=== PATIENT | female | born 1945 | race Caucasian/White ===

== ENCOUNTER 2019-10-18 18:02 | Inpatient (IN) | payer MEDICARE, OTHER ==
[~2019-10-18] VITALS: Ht 157.5 cm; Wt 64.9 kg
--- NOTE | 2019-10-18 18:02 | NUR ---
pt walked into er with daughters for medical clearance and psych eval due to behaviorial disturbances. pt with aggressive behaviors, refusing taking meds, hx of bipolar
--- NOTE | 2019-10-18 18:27 | NUR ---
josie trujillo called, will be here in one hour.
[2019-10-18 19:06] LABS: BASOPHILS % (AUTO) 0.4 % (0.0-2.0); EOSINOPHILS # (AUTO) 0.1 K/uL (0.0-0.7); EOSINOPHILS % (AUTO) 1.5 % (0.0-7.0); HEMATOCRIT 34.5 % (31.2-41.9); HEMOGLOBIN 11.8 g/dL (10.9-14.3); LYMPHOCYTES # (AUTO) 2.9 K/uL (20.0-40.0); LYMPHOCYTES % (AUTO) 43.4 % (20.5-51.5); MEAN CORPUSCULAR HEMOGLOBIN 32.8 uug (24.7-32.8); MEAN CORPUSCULAR HGB CONC 34 g/dL (32.3-35.6); MEAN CORPUSCULAR VOLUME 96.2 fL (75.5-95.3); MONOCYTES # (AUTO) 0.5 K/uL (2.0-10.0); MONOCYTES % (AUTO) 7.6 % (0.0-11.0); NEUTROPHILS # (AUTO) 3.1 K/uL (1.8-8.9); NEUTROPHILS % (AUTO) 47.1 % (38.5-71.5); PLATELET COUNT (AUTO) 169 K/uL (179-408); RED BLOOD CELL COUNT(AUTO) 3.59 MIL/uL (3.63-4.92); WHITE BLOOD COUNT (AUTO) 6.6 K/uL (3.8-11.8)
[2019-10-18 19:13] LABS: *BILIRUBIN,URIN NEGATIVE (NEGATIVE); *CLARITY,URINE SLIGHTLY CLOUDY (CLEAR); *COLOR,URINE YELLOW (YELLOW); *KETONES,URINE NEGATIVE (NEGATIVE); *UROBILINOGEN,URINE 0.2 E.U./dl (NORMAL); LEUKOCYTE ESTERASE ,URINE 1+ (NEGATIVE); NITRITE, URINE POSITIVE (NEGATIVE); PH,URINE 5.5 (5.0-8.0); UGLUCOSE NEGATIVE (NEGATIVE)
[2019-10-18 19:14] LABS: CARBON DIOXIDE 27 mmol/L (21-32); CHLORIDE 104 mmol/L (98-107); GLUCOSE 133 mg/dL (74-106); POTASSIUM 3.5 mmol/L (3.5-5.1); UREA NITROGEN, BLOOD 26 mg/dL (7-18)
[2019-10-18 19:18] LABS: *BLOOD, URINE TRACE (NEGATIVE)
[2019-10-18 19:21] LABS: BACTERIA,URINE MANY /HPF (NONE SEEN); SQUAMOUS EPITHELIAL CELL,UR MODERATE /HPF (NONE SEEN); URINE AMORPHOUS URATE MODERATE /HPF; WBC,URINE 80-100 /HPF (0-3)
[2019-10-18 19:22] LABS: *AMPHETAMINE, URINE NEGATIVE (NEGATIVE); *BARBITURATE, URINE NEGATIVE (NEGATIVE); *CANNABINOID, URINE NEGATIVE (NEGATIVE); *COCCAINE, URINE NEGATIVE (NEGATIVE); *OPIATE, URINE NEGATIVE (NEGATIVE); *PHENCYCLIDINE SCREEN,URINE NEGATIVE (NEGATIVE)
[2019-10-18 19:22] LABS: ETHANOL < 3 MG/DL (0-0)
[2019-10-18 19:27] LABS: THYROID STIMULATING HORMONE 11.251 mIU/mL (0.358-3.740)
[2019-10-18 19:29] LABS: ALANINE AMINOTRANSFERASE 16 U/L (14-59); ALKALINE PHOSPHATASE 101 U/L (50-136); ASPARTATE AMINOTRANSFERASE 18 U/L (15-37); BILIRUBIN,DIRECT 0.1 mg/dL (0.0-0.2); BILIRUBIN,TOTAL 0.6 mg/dL (0.2-1.0); CREATINE KINASE, TOTAL 45 U/L (26-192); TOTAL PROTEIN, SERUM 9.8 g/dL (6.4-8.2)
[2019-10-18 19:30] LABS: ACETAMINOPHEN < 2.0 ug/mL (10-30)
--- NOTE | 2019-10-18 20:00 | NUR ---
Medically cleared by Dr. Stephens
--- NOTE | 2019-10-18 20:02 | NUR ---
Geoff Montano at bedside to evaluate patient
[2019-10-18] MEDS ORDERED: NITROFURANTOIN/NITROFURAN MAC 100 MG CAPSULE PO ONE (20:15)
--- NOTE | 2019-10-18 20:47 | NUR ---
Pt. admitted to [facility] , under care of Dr. Laws / Dr. Lopez Belongs List completed
[2019-10-18] MEDS ORDERED: TEMAZEPAM 7.5 MG CAPSULE PO PRN (21:00)
[2019-10-18] MEDS ORDERED: ACETAMINOPHEN 325 MG TABLET PO PRN (21:00)
[2019-10-18] MEDS ORDERED: MAG HYDROX/AL HYDROX/SIMETH 30 ML LIQUID UDC PO PRN (21:00)
[2019-10-18] MEDS ORDERED: BLOOD SUGAR DIAGNOSTIC 1 EACH STRIP VI ONE (21:00)
[2019-10-18] MEDS ORDERED: MAGNESIUM HYDROXIDE 30 ML LIQUID UDC PO PRN (21:00)
[2019-10-18] MEDS ORDERED: LORAZEPAM 0.5 MG TABLET PO PRN (21:00)
[2019-10-18 21:30] VITALS: BP 138/67
--- NOTE | 2019-10-18 23:10 | NUR ---
GPS: Admitted to unit earlier a 74 yr.old female under the care and supervision of / who was medically cleared in our E.R. Pt.is on a 72 hour hold for GD. Pt.has become unmanageable to family caregivers,wandering aimlessly,elopement risk,refusing meds,and having increase auditory hallucinations,per hold. Pt.is alert to name and place. Slightly anxious but cooperative and listens to re-direction from staff. Denies wanting to hurt self/others.Denies AH/VH when asked. Personal belongings list/skin assessment done. Pt's rights handbook/advisement given to pt. Unit rules explained. Assisted prn. Safety emphasized. Fall precautions observed. Will continue to monitor.
[2019-10-19 07:42] VITALS: BP 128/61
[2019-10-19] MEDS: NITROFURANTOIN/NITROFURAN MAC 100 MG CAPSULE PO SCH ×2 (08:28→20:18)
--- NOTE | 2019-10-19 10:49 | NUR ---
Social Work/Family Contact: licensing worker spoke with patient's daughter, Kenia Johnson ([phone]) and collected collateral information regarding patient's current behaviors at home. Kenia stated that patient was stabilized from her previous psychiatric hospitalization in [place] in 2014, however, when they took her home she stopped taking her antipsychotic medications. Kenia stated that they hired a caregiver M-F 9am-5pm at home for the patient and her and her siblings rotate in taking care of her in the evenings and weekends. Per Kenia patient has become an elopement risk and unmanageable at home. Kenia stated that they are considering a senior living home for the patient upon this hospital discharge. Kenia stated that Bryan Zaidi ([phone]) patient's son, has DPOA. SW called Bryan but unable to reach or leave a voicemail. Will attempt to call again.
--- NOTE | 2019-10-19 10:49 | NUR ---
Social Work/Initial Discharge Note: Patient currently resides at home [address] [place] [address] with her daughter Alicia ([phone]). Patient's daughter Kenia ([phone]) and son Bryan Zaidi ([phone]) are very involved in the pt's care. SW will continue to work with patient, family, and MD to ensure a safe and proper discharge plan.
--- NOTE | 2019-10-19 11:15 | NUR ---
Social Work/Firearms Report (DOJ): Patent Searcher completed and submitted a DPJ firearms report for 5150 grave disability certification. A copy of report has been placed in patient chart.
[2019-10-19] MEDS: LORAZEPAM 1 MG TABLET PO PRN (11:46)
--- NOTE | 2019-10-19 11:49 | NUR ---
Patient up in maria del carmen chair. Confused, wants to leave. Keeps trying to remove gown. When assisting with cloths, patient tried to grab dave from nurse. Increase in agitation noted. Reorientation and redirection given to patient with little success. Ativan 1 mg given for anxiety. Continuing to monitor patient for behavior and safety.
[2019-10-19 15:45] VITALS: BP 126/62
[2019-10-19] MEDS: risperiDONE 0.25 MG TABLET PO SCH (20:18)
[2019-10-19] MEDS: RIVASTIGMINE TARTRATE 1.5 MG CAPSULE PO SCH (20:18)
[2019-10-19 20:32] VITALS: BP 113/69
[2019-10-19] MEDS ORDERED: RIVASTIGMINE TARTRATE 1.5 MG CAPSULE PO SCH (21:00)
[2019-10-20 07:30] VITALS: BP 114/63
[2019-10-20] MEDS: risperiDONE 0.25 MG TABLET PO SCH ×2 (08:12→20:02)
[2019-10-20] MEDS: RIVASTIGMINE TARTRATE 1.5 MG CAPSULE PO SCH ×2 (08:12→20:02)
[2019-10-20] MEDS: AMLODIPINE 10 MG TABLET PO SCH (08:12)
[2019-10-20] MEDS: METFORMIN HCL 500 MG TABLET PO SCH (08:12)
[2019-10-20] MEDS: NITROFURANTOIN/NITROFURAN MAC 100 MG CAPSULE PO SCH ×2 (08:12→20:01)
[2019-10-20] MEDS: MULTIVITAMINS,THERAPEUTIC TABLET PO SCH (08:12)
[2019-10-20] MEDS: LOSARTAN POTASSIUM 50 MG TABLET PO SCH (08:18)
--- NOTE | 2019-10-20 08:19 | NUR ---
Received patient awake, alert and oriented x3. Respirations are even and unlabored, no signs of respiratory distress noted. Patient is cooperative and redirectable with staff, but is guarded, withdrawn, and appears anxious. Patient is able to communicate needs to staff, speaks Telugu and Afghan. Patient is able to independently provide self care and ADL's, requires assistance with ambulation. Patient is medication adherent, no adverse reaction noted. Will continue to monitor.
[2019-10-20] MEDS ORDERED: Medication Not On Formulary EA (Multivitamin/Iron/Folic Acid (Centrum Adults Tablet) 1 E PO SCH (09:00)
--- NOTE | 2019-10-20 13:41 | NUR ---
Patient anxious, crying, and irritable. Patient states that she is 46 years old, currently , and that her family doesn't believe that she is . Patient provided with reality orientation, but refuses to follow education from staff. Patient is cooperative and redirectable with staff.
[2019-10-20 16:00] VITALS: BP 105/50
[2019-10-20 20:13] VITALS: BP 142/73
[2019-10-21 07:30] VITALS: BP 130/73
[2019-10-21] MEDS: risperiDONE 0.25 MG TABLET PO SCH (08:36)
[2019-10-21] MEDS: RIVASTIGMINE TARTRATE 1.5 MG CAPSULE PO SCH ×2 (08:36→20:35)
[2019-10-21] MEDS: MULTIVITAMINS,THERAPEUTIC TABLET PO SCH (08:37)
[2019-10-21] MEDS: LOSARTAN POTASSIUM 50 MG TABLET PO SCH (08:37)
[2019-10-21] MEDS: METFORMIN HCL 500 MG TABLET PO SCH (08:37)
[2019-10-21] MEDS: NITROFURANTOIN/NITROFURAN MAC 100 MG CAPSULE PO SCH ×2 (08:37→20:35)
[2019-10-21] MEDS: AMLODIPINE 10 MG TABLET PO SCH (08:38)
--- NOTE | 2019-10-21 11:18 | NUR ---
Received patient in bed, mood depressed. Alert to name, but with delusions of "My boyfriend is in the next room. He is so nice but I cant remember his name". Also expressing " I have to leave, I am not suppose to be here". Patient depressed and weeping. Reoriented patient to situation and reality . Continuing to monitor for distress and safety. Patient is compliant with medications at this time.
[2019-10-21] MEDS: LORAZEPAM 1 MG TABLET PO PRN (16:26)
[2019-10-21 18:00] VITALS: BP 104/58
--- NOTE | 2019-10-21 18:09 | NUR ---
Patient up during the day many times. Mood was depressed and anxious.Assisted patient with ambulation and bathroom privileges. Medicated for anxiety. Family visiting patient at this time. No acute stress noted.
--- NOTE | 2019-10-21 20:00 | NUR ---
RECEIVED PATIENT IN THE HER ROOM IN BED. SHE IS NOTED A/O X1. SHE CONTINUE ISOLATIVE, REMAINS IN HER ROOM MOST OF THE TIME. FLAT AFFEC, DEPRESSED MOOD. SHE CONTINUE HAVING DELUSIONAL THOUGHTS: HE STATED, "I AM HERE IN THE HOSPITAL BECAUSE I AM ". PATIENT DENIES SI/HI/VH/AH. SHE IS ABLE TO CFS. V.S STABLE. PT IS REASSURED FOR HER SAFETY. SAFETY AND FALL PRECAUTION IN PLACE. WILL CONTINUE TO MONITOR.
[2019-10-21 20:39] VITALS: BP 117/61
[2019-10-21] MEDS: risperiDONE 0.5 MG TABLET PO SCH (20:42)
[2019-10-22 07:30] VITALS: BP 114/67
[2019-10-22] MEDS: NITROFURANTOIN/NITROFURAN MAC 100 MG CAPSULE PO SCH ×2 (09:04→20:56)
[2019-10-22] MEDS: RIVASTIGMINE TARTRATE 1.5 MG CAPSULE PO SCH ×2 (09:04→20:56)
[2019-10-22] MEDS: risperiDONE 0.5 MG TABLET PO SCH ×2 (09:04→20:56)
[2019-10-22] MEDS: MULTIVITAMINS,THERAPEUTIC TABLET PO SCH (09:04)
[2019-10-22] MEDS: METFORMIN HCL 500 MG TABLET PO SCH (09:05)
[2019-10-22] MEDS: AMLODIPINE 10 MG TABLET PO SCH (09:05)
[2019-10-22] MEDS: LOSARTAN POTASSIUM 50 MG TABLET PO SCH (09:05)
[2019-10-22 16:00] VITALS: BP 115/62
[2019-10-22 20:58] VITALS: BP 118/61
--- NOTE | 2019-10-22 21:00 | NUR ---
RECEIVED PATIENT IN HER ROOM IN BED. SHE IS NOTED AWAKE A/O X2, SHE IS NOTED CALM UPON APPROACHED. CONTINUE ISOLATIVE. CONTINUE HAVING DELUSIONAL THINKING THAT SHE IS AND THAT IS WHY SHE IS IN THE HOSPITAL. PATIENT IS REORIENTED TO TIME AND SITUATION. SHE IS ALSO REASSURED FOR HER SAFETY/ V/S STABLE AT THIS TIME. SAFETY AND FALL PRECAUTION IN PLACE. PATIENT IS ABLE TO AMBULATE BUT HER GAIT IS UNSTEADY. WILL CONTINUE TO MONITOR.
--- NOTE | 2019-10-23 05:29 | NUR ---
Patient first observed awake, alert and oriented X2-3. Vital Signs stable no signs of distress noted. Patient appeared cooperative did not require redirection this shift. Patients mood observed to be low with flat affect. guarded, withdrawn. Patient is able to communicate needs to staff, speaks mostly lao. Patient required assistance with ADL's, able to ambulate with fww, gait appears unstable. Patient was compliant with HS medication, no adverse reaction noted. Will continue to monitor as well as provide a safe and therapeutic environment. .
[2019-10-23 08:30] VITALS: BP 136/65
[2019-10-23] MEDS: risperiDONE 0.5 MG TABLET PO SCH ×2 (08:54→20:38)
[2019-10-23] MEDS: RIVASTIGMINE TARTRATE 1.5 MG CAPSULE PO SCH ×2 (08:54→20:38)
[2019-10-23] MEDS: LOSARTAN POTASSIUM 50 MG TABLET PO SCH (08:55)
[2019-10-23] MEDS: NITROFURANTOIN/NITROFURAN MAC 100 MG CAPSULE PO SCH ×2 (08:55→20:38)
[2019-10-23] MEDS: AMLODIPINE 10 MG TABLET PO SCH (08:55)
[2019-10-23] MEDS: METFORMIN HCL 500 MG TABLET PO SCH (08:55)
[2019-10-23] MEDS: MULTIVITAMINS,THERAPEUTIC TABLET PO SCH (08:56)
[2019-10-23 15:31] VITALS: BP 105/61
[2019-10-23 20:00] VITALS: BP 148/74
--- NOTE | 2019-10-23 22:00 | NUR ---
received to care, lying in bed, isolative, but pleasant, when approached. compliant with medications and staff direction. as of 2199, she appears to be asleep. no distress noted. will continue to monitor closely.
--- NOTE | 2019-10-24 06:00 | NUR ---
slept 7.5 hours, total. continues to sleep. no distress noted.
[2019-10-24] MEDS: LEVOTHYROXINE SODIUM 25 MCG TABLET PO SCH (06:39)
[2019-10-24 07:30] VITALS: BP 115/66
[2019-10-24] MEDS: MULTIVITAMINS,THERAPEUTIC TABLET PO SCH (08:45)
[2019-10-24] MEDS: RIVASTIGMINE TARTRATE 1.5 MG CAPSULE PO SCH ×2 (08:46→20:04)
[2019-10-24] MEDS: risperiDONE 0.5 MG TABLET PO SCH ×2 (08:46→20:04)
[2019-10-24] MEDS: METFORMIN HCL 500 MG TABLET PO SCH (08:46)
[2019-10-24] MEDS: ASPIRIN EC 81 MG TABLET.DR PO SCH (08:46)
[2019-10-24] MEDS: AMLODIPINE 10 MG TABLET PO SCH (08:53)
[2019-10-24] MEDS: LOSARTAN POTASSIUM 50 MG TABLET PO SCH (08:53)
[2019-10-24 10:14] VITALS: BP 115/66
--- NOTE | 2019-10-24 15:45 | NUR ---
Gps/Lamp Mechanic- Family were in to visit,ambulated patient around with FWW.Family was informed visitors limited to 3 people only.
[2019-10-24 16:13] VITALS: BP 123/62
[2019-10-24 20:00] VITALS: BP 120/62
--- NOTE | 2019-10-24 22:00 | NUR ---
received to care, lying in bed, pleasant, upon approach. compliant with medications and staff direction. as of 0, she appears to be asleep. no distress noted. will continue to monitor closely.
--- NOTE | 2019-10-25 06:00 | NUR ---
slept 8.75 hours, total. assisted with AM care, and shower. currently lying in bed. no distress noted.
[2019-10-25] MEDS: LEVOTHYROXINE SODIUM 25 MCG TABLET PO SCH (06:26)
[2019-10-25 07:30] VITALS: BP 125/60
[2019-10-25] MEDS: AMLODIPINE 10 MG TABLET PO SCH (08:19)
[2019-10-25] MEDS: MULTIVITAMINS,THERAPEUTIC TABLET PO SCH (08:19)
[2019-10-25] MEDS: METFORMIN HCL 500 MG TABLET PO SCH (08:19)
[2019-10-25] MEDS: risperiDONE 0.5 MG TABLET PO SCH (08:20)
[2019-10-25] MEDS: LOSARTAN POTASSIUM 50 MG TABLET PO SCH (08:20)
[2019-10-25] MEDS: ASPIRIN EC 81 MG TABLET.DR PO SCH (08:20)
[2019-10-25] MEDS: RIVASTIGMINE TARTRATE 1.5 MG CAPSULE PO SCH ×2 (08:20→20:30)
--- NOTE | 2019-10-25 09:36 | NUR ---
Received patient asleep in her assigned bed. Bed is in low and locked position, bed alarm on. During assessment, patient is awake, alert and oriented to person and place only, requires reality orientation for reason for admission. Patient is guarded, withdrawn, and isolative to her assigned room, but is cooperative with this typewriter operator automatic during assessment. Patient believes that she is 5 months despite reality orientation. Patient denies SI/HI, denies AH/VH. Patient is able to provide self care and ADL's with staff assistance, requires staff assistance and FWW with ambulation. Patient is educated to communicate her needs to staff appropriately, educated about impulse control, she is able to verbalize understanding. Patient is medication adherent, no adverse reaction noted. Will continue to monitor.
--- NOTE | 2019-10-25 10:46 | NUR ---
Social Work/Discharge Planning: Sales/Marketing faxed patient's referral packet including: History and Physical, Consultation, Progress Notes, Medication List and Labs to the following facilities for review and possible half-way placement: [facility] attention to [facility] [place] [place] [address] Addendum: 10/26/19 at 1204 by ZACARIAS GARCIA RASHAD spoke with Marcia from [facility] ([phone]) who will be evaluating the patient tomorrow morning for possible placement. RASHAD spoke with [place] client coordinator at [facility] ([phone]) who stated they cannot accept the patient to their facility due to behaviors. RASHAD spoke with Tonya from [facility] ([phone]) who evaluated the patient and accepted the patient to their facility. However, spoke with Kenia ([phone]) who stated she does not want this placement due to it being a far location from their home in [place], [place].
[2019-10-25 15:44] VITALS: BP 140/68
[2019-10-25 20:00] VITALS: BP 121/71
[2019-10-25] MEDS: risperiDONE 1 MG TABLET PO SCH (20:31)
--- NOTE | 2019-10-26 00:20 | NUR ---
RECEIVED PATIENT IN BED AWAKE.SHE APPEARS ANXIOUS, WITHDRAWN AND GUARDED.MOOD IS LOW AND SHE IS SUSPICIOUS REGARDING HER MEDICATIONS.SHE DENIES SI/HI. SHE IS HOWEVER MEDICATION COMPLIANT. SAFETY MEASURES IN PLACE.VISUAL CHECKS ALSO MADE ON HER.WILL CONTINUE TO MONITOR.
--- NOTE | 2019-10-26 06:19 | NUR ---
SHE SLEPT FOR 7;15HRS.
[2019-10-26] MEDS: LEVOTHYROXINE SODIUM 25 MCG TABLET PO SCH (06:30)
[2019-10-26 08:12] VITALS: BP 130/70
[2019-10-26] MEDS: METFORMIN HCL 500 MG TABLET PO SCH (09:22)
[2019-10-26] MEDS: RIVASTIGMINE TARTRATE 1.5 MG CAPSULE PO SCH ×2 (09:22→20:20)
[2019-10-26] MEDS: risperiDONE 1 MG TABLET PO SCH ×2 (09:23→20:20)
[2019-10-26] MEDS: MULTIVITAMINS,THERAPEUTIC TABLET PO SCH (09:23)
[2019-10-26] MEDS: LOSARTAN POTASSIUM 50 MG TABLET PO SCH (09:23)
[2019-10-26] MEDS: AMLODIPINE 10 MG TABLET PO SCH (09:23)
[2019-10-26] MEDS: ASPIRIN EC 81 MG TABLET.DR PO SCH (09:24)
--- NOTE | 2019-10-26 11:57 | NUR ---
Social Work/Coordination of Care: Trichologist faxed patient's referral packet including: History and Physical, Consultation, Progress Notes, Medication List and Labs to: [facility] Attention to [facility] [place] [address] Awaiting review. Addendum: 10/27/19 at 1119 by ZACARIAS GARCIA Patient is accepted to facility upon discharge.
--- NOTE | 2019-10-26 13:00 | NUR ---
PT ATE VERY LITTLE OF THE APPLE SAUCE. APPEARS A LITTLE AGITATED, MEDICATED WITH ATIVAN 1MG ORALLY MIXED WITH HIS APPLE SAUCE. Addendum: 10/26/19 at 1354 by GERTRUDE SAM RN THIS DOCUMENTATION IS MEANT FOR ANOTHER PT IN RM 141B JACINTA AMBRIZ
--- NOTE | 2019-10-26 13:19 | NUR ---
PT AMBULATED WITH PHYSICAL THERAPIST USING A WALKER UP AND ABOUT THE HALLWAY. PT TOLERATED WELL. NO SOB NOTED. PT EATING GOOD WELL.
--- NOTE | 2019-10-26 14:00 | NUR ---
PT AMBULATED TO THE BATHROOM WITHN ASSISTANCE. HAS A VERY HUGE BM.
--- NOTE | 2019-10-26 14:55 | NUR ---
PT IS SLEEPING SOUNDLY IN BED. AROUSABLE AND DENIED ANY HEADACHES.
[2019-10-26 15:50] VITALS: BP 98/54
[2019-10-26 15:51] VITALS: BP 98/54
[2019-10-26 21:36] VITALS: BP 104/66
[2019-10-27] MEDS: LEVOTHYROXINE SODIUM 25 MCG TABLET PO SCH (06:15)
[2019-10-27 07:30] VITALS: BP 116/59
--- NOTE | 2019-10-27 07:55 | NUR ---
Received patient sleeping easily arousable, AAOx2-3. compliant and following directions.
[2019-10-27] MEDS: risperiDONE 1 MG TABLET PO SCH ×2 (08:29→20:34)
[2019-10-27] MEDS: METFORMIN HCL 500 MG TABLET PO SCH (08:29)
[2019-10-27] MEDS: RIVASTIGMINE TARTRATE 1.5 MG CAPSULE PO SCH ×2 (08:29→20:34)
[2019-10-27] MEDS: ASPIRIN EC 81 MG TABLET.DR PO SCH (08:29)
[2019-10-27] MEDS: MULTIVITAMINS,THERAPEUTIC TABLET PO SCH (08:29)
[2019-10-27] MEDS: LOSARTAN POTASSIUM 50 MG TABLET PO SCH (08:30)
[2019-10-27] MEDS: AMLODIPINE 10 MG TABLET PO SCH (08:30)
--- NOTE | 2019-10-27 11:19 | NUR ---
Social Work/Family Contact: Electrotyper Helper spoke with patient's DPOA/Son Bryan Zaidi ([phone]) and informed of the potential fdc placement for the patient - [facility] and [facility]. SW waiting for [facility] Marcia to evaluate the patient today. Electrotyper Helper also spoke with patient's daughter, Kenia Johnson ([phone]) and informed her of the above information. Will update both Kenia and Bryan of patient's acceptance to penitentiary facilities.
--- NOTE | 2019-10-27 15:10 | NUR ---
Social Work Individual therapy Note: Boiler Plant Operator met with patient for individual supportive counseling. cafeteria worker encouraged patient to participate in self-care, grooming and bathing regularly. Patient has been cooperative in self-care although needs assistance. Patient presented calm and somewhat withdrawn. Patient did not want to engage in conversation. Boiler Plant Operator will continue to meet with patient and provide ongoing support.
[2019-10-27 16:00] VITALS: BP 121/56
[2019-10-27 20:54] VITALS: BP 112/69
--- NOTE | 2019-10-27 22:00 | NUR ---
received to care, in bed, pleasant, but isolative, upon approach. compliant with medications and staff direction. as of 2199, she appears to be asleep. no distress noted. will continue to monitor closely.
[2019-10-28] MEDS: LEVOTHYROXINE SODIUM 25 MCG TABLET PO SCH (06:24)
[2019-10-28 07:30] VITALS: BP 111/69
[2019-10-28] MEDS: METFORMIN HCL 500 MG TABLET PO SCH (08:52)
[2019-10-28] MEDS: MULTIVITAMINS,THERAPEUTIC TABLET PO SCH (08:52)
[2019-10-28] MEDS: RIVASTIGMINE TARTRATE 1.5 MG CAPSULE PO SCH ×2 (08:52→20:22)
[2019-10-28] MEDS: ASPIRIN EC 81 MG TABLET.DR PO SCH (08:52)
[2019-10-28] MEDS: risperiDONE 1 MG TABLET PO SCH ×2 (08:52→20:22)
[2019-10-28] MEDS: AMLODIPINE 10 MG TABLET PO SCH (09:00)
[2019-10-28] MEDS: LOSARTAN POTASSIUM 50 MG TABLET PO SCH (09:00)
--- NOTE | 2019-10-28 12:29 | NUR ---
Social Work/Coordination of Care: tin recovery worker received a call from patient's son/DPOA, Bryan Zaidi ([phone]) who requested this designer/writer to fax a referral packet of the patient to [facility] [address] [place] [address] ) ) attention to [facility]. Byran stated he would like to see if the patient will be accepted to this facility, he'd rather have her go there instead. RASHAD faxed the patient's referral packet to [facility]. Awaiting response. Addendum: 10/28/19 at 1351 by ZACARIAS GARCIA Aquatic Habitat Biologist received a call back from [facility] stating they cannot accept the patient to their facility and that they have informed the patient's son, Bryan. RASHAD spoke with Bryan ([phone]) to inform him of the decision. Bryan stated they would like the patient to go to [facility] ([phone]).
[2019-10-28 15:20] VITALS: BP 129/71
--- NOTE | 2019-10-28 17:00 | NUR ---
Gps?ceramic coater- Stayed up on her maria del carmen-chair by the Nurses Station, attended group therapy. Had beed cooperative with staff, ambulated with FWW cga. Deneis any discomfort. DC planning remains in progress.
[2019-10-28 20:00] VITALS: BP 121/65
--- NOTE | 2019-10-29 06:00 | NUR ---
slept well. continues to sleep. no distress noted.
[2019-10-29] MEDS: LEVOTHYROXINE SODIUM 25 MCG TABLET PO SCH (06:51)
[2019-10-29 07:30] VITALS: BP 116/78
--- NOTE | 2019-10-29 08:10 | NUR ---
Social Work Discharge Note: Patient will be discharged to [facility] ([phone]). Manager Flight Operations spoke with Kim, direct marketing analyst, who stated patient is able to admit to the facility today. Transportation is arranged by the facility today at 11:00am. Patient is alert and oriented x2-3, denies suicidal or homicidal ideation, and is aware and agreeable with discharge plans. Patient presents with withdrawn mood and flat affect. Patient is unable to provide for self-care at this time, however, is willing to accept care at the facility. Patients daughter, Kenia Johnson ([phone]) and son/DPOA, Bryan Zaidi ([phone]) are made aware and are agreeable with discharge plans. Patient will follow-up at the facility with service line layer Dr. Esteves and psychiatrist Dr. Fine.
[2019-10-29] MEDS: METFORMIN HCL 500 MG TABLET PO SCH (09:15)
[2019-10-29] MEDS: MULTIVITAMINS,THERAPEUTIC TABLET PO SCH (09:15)
[2019-10-29] MEDS: LOSARTAN POTASSIUM 50 MG TABLET PO SCH (09:15)
[2019-10-29] MEDS: RIVASTIGMINE TARTRATE 1.5 MG CAPSULE PO SCH (09:15)
[2019-10-29 09:16] VITALS: BP 116/78
[2019-10-29] MEDS: risperiDONE 1 MG TABLET PO SCH (09:16)
[2019-10-29] MEDS: AMLODIPINE 10 MG TABLET PO SCH (09:16)
[2019-10-29] MEDS: ASPIRIN EC 81 MG TABLET.DR PO SCH (09:38)
--- NOTE | 2019-10-29 11:00 | NUR ---
Gps/Property Management Accountant- Kristen Rosend[place] [facility] will be providing the transportation. Called facility report was given to Tash Weir. All belongings was given back to patient, including purple walker( patient own ). Patient in good spirit, denies S.I. no H..I. looking forward to being discharge today. Family were informed of dc. plan.Discharged via [facility].
== END 2019-10-29 11:00 | DRG 885 ==
LOC: ER 18:06 → GPS 20:52
PROVIDERS: ADMIT Psychiatry & Neurology Psychiatry; ATTEND Student in an Organized Health Care Education/Training Program
DX: F29 Unspecified psychosis not due to a substance or known physiological condition (principal); I69.354 Hemiplegia and hemiparesis following cerebral infarction affecting left non-dominant side; D68.59 Other primary thrombophilia; N39.0 Urinary tract infection, site not specified; Z16.11 Resistance to penicillins; Z16.29 Resistance to other single specified antibiotic; Z91.14 Patient's other noncompliance with medication regimen; E78.00 Pure hypercholesterolemia, unspecified; R26.81 Unsteadiness on feet; E11.9 Type 2 diabetes mellitus without complications; Z79.84 Long term (current) use of oral hypoglycemic drugs; Z95.5 Presence of coronary angioplasty implant and graft; F03.90 Unspecified dementia, unspecified severity, without behavioral disturbance, psychotic disturbance, mood disturbance, and anxiety; Z74.09 Other reduced mobility; Z79.82 Long term (current) use of aspirin; E78.5 Hyperlipidemia, unspecified; B96.20 Unspecified Escherichia coli [E. coli] as the cause of diseases classified elsewhere; E03.9 Hypothyroidism, unspecified; I25.10 Atherosclerotic heart disease of native coronary artery without angina pectoris; I10 Essential (primary) hypertension; E66.9 Obesity, unspecified; Z68.26 Body mass index [BMI] 26.0-26.9, adult
CPT/HCPCS: 36415; 80307; 84443; 85025; 87077; 87086; A4663; G0480; G0480-TC

== ENCOUNTER 2021-02-15 13:10 | Inpatient (IN) | payer MEDICARE, OTHER ==
[~2021-02-15] VITALS: Ht 167.6 cm; Wt 50.8 kg
[~2021-02-15 13:10] MED LIST: AMLO10TA59 PO; ATOR80TA PO; LOSA100T31 PO; METF-440 PO; METO25TA6 PO; MULT-1201 PO
--- NOTE | 2021-02-15 13:15 | NUR ---
DR HER EVALUATED THE PT. PT IS IN ROOM #2B. PT's SON AT THE BEDSIDE.
[2021-02-15] MEDS ORDERED: METF-440 PO (13:26)
[2021-02-15] MEDS ORDERED: LOSA50TA39 PO (13:26)
[2021-02-15] MEDS ORDERED: AMLO10TA59 PO (13:26)
[2021-02-15] MEDS ORDERED: ATOR40TA PO (13:26)
[2021-02-15] MEDS ORDERED: METO25TA6 PO (13:26)
[2021-02-15] MEDS ORDERED: QUET25TA PO (13:26)
[2021-02-15] MEDS ORDERED: MULT-594 PO (13:26)
[2021-02-15] MEDS ORDERED: DONE10TA44 PO (13:26)
[2021-02-15] MEDS ORDERED: LEVO25TA9 PO (13:26)
[2021-02-15 13:52] LABS: HEMATOCRIT 33.4 % (31.2-41.9); MEAN CORPUSCULAR HEMOGLOBIN 34.5 uug (24.7-32.8); MEAN CORPUSCULAR VOLUME 97.9 fL (75.5-95.3); PLATELET COUNT (AUTO) 186 K/uL (179-408)
[2021-02-15 13:57] LABS: *BILIRUBIN,URIN NEGATIVE (NEGATIVE); *BLOOD, URINE NEGATIVE (NEGATIVE); *CLARITY,URINE CLEAR (CLEAR); *COLOR,URINE YELLOW (YELLOW); *KETONES,URINE NEGATIVE (NEGATIVE); *UROBILINOGEN,URINE 0.2 E.U./dl (NORMAL); LEUKOCYTE ESTERASE ,URINE NEGATIVE (NEGATIVE); NITRITE, URINE NEGATIVE (NEGATIVE); UGLUCOSE NEGATIVE (NEGATIVE)
[2021-02-15 14:00] LABS: CHLORIDE 104 mmol/L (98-107); POTASSIUM 4.1 mmol/L (3.5-5.1)
[2021-02-15 14:03] LABS: *AMPHETAMINE, URINE NEGATIVE (NEGATIVE); *CANNABINOID, URINE NEGATIVE (NEGATIVE); *COCCAINE, URINE NEGATIVE (NEGATIVE); *OPIATE, URINE NEGATIVE (NEGATIVE); *PHENCYCLIDINE SCREEN,URINE NEGATIVE (NEGATIVE)
[2021-02-15 14:05] LABS: ETHANOL < 3 MG/DL (0-0)
[2021-02-15 14:07] LABS: CARBON DIOXIDE 29 mmol/L (21-32)
[2021-02-15 14:08] LABS: ACETAMINOPHEN < 2.0 ug/mL (10-30); ALANINE AMINOTRANSFERASE 26 U/L (14-59); ALKALINE PHOSPHATASE 101 U/L (50-136); ASPARTATE AMINOTRANSFERASE 18 U/L (15-37); BILIRUBIN,DIRECT 0.1 mg/dL (0.0-0.2); BILIRUBIN,TOTAL 0.2 mg/dL (0.2-1.0); GLUCOSE 100 mg/dL (74-106); TOTAL PROTEIN, SERUM 11.8 g/dL (6.4-8.2); UREA NITROGEN, BLOOD 22 mg/dL (7-18)
[2021-02-15 14:14] LABS: THYROID STIMULATING HORMONE 2.848 mIU/mL (0.358-3.740)
--- NOTE | 2021-02-15 15:34 | NUR ---
Bernard Allen LCSW was notified via telephone for psych eval, stated he will come in as soon as possible.
--- NOTE | 2021-02-15 16:10 | NUR ---
Art here for psych eval.
[2021-02-15] MEDS ORDERED: LORAZEPAM 1 MG TABLET PO PRN (17:15)
[2021-02-15] MEDS ORDERED: MAGNESIUM HYDROXIDE 30 ML LIQUID UDC PO PRN (17:15)
[2021-02-15] MEDS ORDERED: MAG HYDROX/AL HYDROX/SIMETH 30 ML LIQUID UDC PO PRN (17:15)
--- NOTE | 2021-02-15 17:15 | NUR ---
Received patient from ED via wheelchair. Patient awake, alert and oriented x 1-2. on room air. No signs of acute distress. Comfort measures provided. Vital signs stable. Son contacted to be notified of patient's admission to the unit and magazine writer left a voicemail. Safe environment provided. Will continue to monitor.
--- NOTE | 2021-02-15 17:15 | NUR ---
PT WAS TRANSFERED TO [facility] BED #138A AFTER ART CRISIS EVALUATION. REPORT WAS GIVEN TO RN MHU.
[2021-02-15] MEDS ORDERED: ASPI81TA31 PO (18:08)
[2021-02-15] MEDS ORDERED: FERR325T28 PO (18:16)
[2021-02-15] MEDS ORDERED: FOLI1TAB94 PO (18:16)
[2021-02-15] MEDS ORDERED: RISP1TAB97 PO (18:16)
[2021-02-15] MEDS ORDERED: BISA10SU61 RC (18:16)
[2021-02-15] MEDS ORDERED: RIVA1.5C13 PO (18:16)
[2021-02-15] MEDS ORDERED: ASCO-375 PO (18:16)
[2021-02-15] MEDS ORDERED: NA P133E RC (18:16)
--- NOTE | 2021-02-15 18:25 | NUR ---
Dr. Delacruz notified about new admission and medications to be reconciled.
[2021-02-15 18:26] VITALS: BP 110/58
[2021-02-15] MEDS ORDERED: BISACODYL 10 MG SUPP.RECT RC PRN (19:00)
[2021-02-15 19:58] VITALS: BP 106/58
[2021-02-15] MEDS: ATORVASTATIN 40 MG TABLET PO SCH (20:17)
[2021-02-15] MEDS: DONEPEZIL 10 MG TABLET PO SCH (20:17)
[2021-02-16] MEDS: ACETAMINOPHEN 325 MG TABLET PO PRN (05:43)
--- NOTE | 2021-02-16 05:52 | NUR ---
Patient assisted to the shower with the MASTER DEPUTY SHERIFF COURT SECURITY this morning, unwitnessed by this quality analyst/technical writer, patient crying stating "My hand got caught in the door". Assessed right hand fifth finger, patient able to demonstrate movement in finger and noticeable edema with indent present. Provided ice to the affected site. Called on-call EPIC provider awaiting return call and further orders. Will continue to monitor sight.
[2021-02-16] MEDS: LEVOTHYROXINE SODIUM 25 MCG TABLET PO SCH (06:16)
--- NOTE | 2021-02-16 06:19 | NUR ---
Patient slept 7.0 hours. Compliant with medications and care provided. Patient able to make needs knows, all needs were met and attended to. q15 min visual safety checks remain intact.
[2021-02-16 07:10] LABS: BILIRUBIN,TOTAL 0.3 mg/dL (0.2-1.0); CREATININE 0.8 mg/dL (0.6-1.3); POTASSIUM 3.6 mmol/L (3.5-5.1); TOTAL PROTEIN, SERUM 11.3 g/dL (6.4-8.2)
[2021-02-16] MEDS: METFORMIN HCL 500 MG TABLET PO SCH (08:36)
--- NOTE | 2021-02-16 08:37 | NUR ---
Firearms Report: Vocational Placement Specialist completed and submitted a DOJ firearms report for 5150 grave disability certifications. A copy of report has been placed in patient chart.
[2021-02-16 08:38] VITALS: BP 109/59
[2021-02-16] MEDS: FOLIC ACID 1 MG TABLET PO SCH (08:59)
[2021-02-16] MEDS: MULTIVITAMINS,THERAPEUTIC TABLET PO SCH (08:59)
[2021-02-16] MEDS: ASPIRIN 81 MG TAB.CHEW PO SCH (08:59)
[2021-02-16] MEDS: FERROUS SULFATE 325 MG TABEC PO SCH (08:59)
[2021-02-16] MEDS: ASCORBIC ACID 500 MG TABLET PO SCH (08:59)
[2021-02-16] MEDS: RIVASTIGMINE TARTRATE 1.5 MG CAPSULE PO SCH ×2 (09:00→16:08)
[2021-02-16] MEDS: AMLODIPINE 10 MG TABLET PO SCH (09:00)
[2021-02-16] MEDS: LOSARTAN POTASSIUM 50 MG TABLET PO SCH (09:00)
[2021-02-16] MEDS: METOPROLOL TARTRATE 25 MG TABLET PO SCH ×2 (09:01→16:09)
--- NOTE | 2021-02-16 13:55 | NUR ---
RASHAD Initial Discharge Plan: Patient was recently residing at [facility] [place] [address] ([phone]). Patient's son, Bryan ([phone]) is involved in the patient's care. RASHAD spoke with Kim from [facility] who stated patient may return to facility upon discharge. RASHAD will continue to work with patient, family, and MD to ensure a safe and proper discharge plan.
--- NOTE | 2021-02-16 13:55 | NUR ---
RASHAD Family Contact: SW contacted patient's son, Bryan ([phone]) who is involved in the patient's care and left a voicemail to discuss treatment and discharge plan. Waiting for a call back.
[2021-02-16] MEDS: risperiDONE 1 MG TABLET PO SCH (16:09)
[2021-02-16 17:05] VITALS: BP 134/66
[2021-02-16] MEDS: GLUCERNA SHAKE VANILLA 237 ML CAN PO SCH (17:30)
--- NOTE | 2021-02-16 18:23 | NUR ---
Patient Aox1-2, forgetful at times. No signs of acute distress. Ambulatory with assistance. Patient compliant with medications and care. Patient denies pain/ discomfort. Able to make needs known. Safe environment provided. Will endorse to incoming shift for continuity of care.
[2021-02-16 20:10] VITALS: BP 120/75
[2021-02-16] MEDS: ATORVASTATIN 40 MG TABLET PO SCH (20:18)
[2021-02-16] MEDS: DONEPEZIL 10 MG TABLET PO SCH (20:18)
[2021-02-16] MEDS: DIVALPROEX SPRINKLE 125 MG CAP.SPRINK PO SCH (20:19)
--- NOTE | 2021-02-17 05:34 | NUR ---
GPS: Remain calm and cooperative. Compliant with medications and care provided. Patient able to make needs knows, all needs were met and attended to. q15 min visual safety checks remain intact. resting in bed comfortably.
[2021-02-17] MEDS: LEVOTHYROXINE SODIUM 25 MCG TABLET PO SCH (06:14)
--- NOTE | 2021-02-17 06:16 | NUR ---
slept 8 hrs through the night.
--- NOTE | 2021-02-17 07:30 | NUR ---
received patient AOx2, patient speaking, refusing to join group, no interest in getting up, assisted with ADL, on monitoring for SI [id number], no sign of any distress
[2021-02-17 07:53] VITALS: BP 134/73
[2021-02-17] MEDS: FERROUS SULFATE 325 MG TABEC PO SCH (08:18)
[2021-02-17] MEDS: DIVALPROEX SPRINKLE 125 MG CAP.SPRINK PO SCH ×2 (08:18→20:58)
[2021-02-17] MEDS: METOPROLOL TARTRATE 25 MG TABLET PO SCH ×2 (08:19→16:13)
[2021-02-17] MEDS: risperiDONE 1 MG TABLET PO SCH ×2 (08:20→16:22)
[2021-02-17] MEDS: METFORMIN HCL 500 MG TABLET PO SCH (08:20)
[2021-02-17] MEDS: RIVASTIGMINE TARTRATE 1.5 MG CAPSULE PO SCH ×2 (08:20→16:22)
[2021-02-17] MEDS: ASCORBIC ACID 500 MG TABLET PO SCH (08:20)
[2021-02-17] MEDS: ASPIRIN 81 MG TAB.CHEW PO SCH (08:20)
[2021-02-17] MEDS: MULTIVITAMINS,THERAPEUTIC TABLET PO SCH (08:20)
[2021-02-17] MEDS: AMLODIPINE 10 MG TABLET PO SCH (08:23)
[2021-02-17] MEDS: LOSARTAN POTASSIUM 50 MG TABLET PO SCH (08:31)
[2021-02-17] MEDS: FOLIC ACID 1 MG TABLET PO SCH (08:31)
[2021-02-17] MEDS: GLUCERNA SHAKE VANILLA 237 ML CAN PO SCH ×2 (08:31→16:14)
--- NOTE | 2021-02-17 16:26 | NUR ---
received a phone call from patients son Bryan, , over the phone, the son was verbally abusive and threatening and argumentative to the chief writer, the son verbalizes that her mom ( the patient) is supposed to be discharge after 72h , and that is according to [facility], chief writer tried to explain the hold and patient situation however the son drop the phone, charge nurse aware about the sons behavior
--- NOTE | 2021-02-17 16:29 | NUR ---
patient is isolative, no intrerest inj eating lunch and patient refused her 5pm medication, even after explaining about the medication benefits
[2021-02-17 16:43] VITALS: BP 101/56
--- NOTE | 2021-02-17 18:54 | NUR ---
patient continous to have low interst in getting up, refused dinner, withdrawn, MD aware, will continue monitor
[2021-02-17 19:46] VITALS: BP 123/71
[2021-02-17] MEDS: DONEPEZIL 10 MG TABLET PO SCH (20:58)
[2021-02-17] MEDS: ATORVASTATIN 40 MG TABLET PO SCH (20:58)
--- NOTE | 2021-02-17 23:06 | NUR ---
Received patient in bed with her eyes shut. At first try, the patient refused to have the VS taken, but agreed a short time later. This insurance writer offered the patient a snack and the patient said no and again , the patient refused to take the nighttime medications. Despite encouragement and education the patient was not going to take the pills. This patient seems very depressed and is not willing to engage in conversation. Continuing to monitor for safety , to encourage fluids and to do frequent rounding to ensure the patients needs are met.
[2021-02-18] MEDS: LEVOTHYROXINE SODIUM 25 MCG TABLET PO SCH (05:57)
[2021-02-18 07:30] VITALS: BP 95/50
[2021-02-18] MEDS: METFORMIN HCL 500 MG TABLET PO SCH (08:00)
--- NOTE | 2021-02-18 08:00 | NUR ---
Received patient in bed. Patient is alert and oriented times 2-3. Patient is Arabic speaking. She is withdrawn and isolated herself. Flat affect showing signed of depression. No distress noted at this time. Patient denies pain, SI or AMBRIZ. Safety measures implemented. Will continue to monitor.
[2021-02-18] MEDS: METOPROLOL TARTRATE 25 MG TABLET PO SCH ×2 (08:32→17:26)
[2021-02-18] MEDS: GLUCERNA SHAKE VANILLA 237 ML CAN PO SCH ×2 (08:32→17:27)
[2021-02-18] MEDS: AMLODIPINE 10 MG TABLET PO SCH (08:32)
[2021-02-18] MEDS: LOSARTAN POTASSIUM 50 MG TABLET PO SCH (08:33)
[2021-02-18] MEDS: ASPIRIN 81 MG TAB.CHEW PO SCH (08:44)
[2021-02-18] MEDS: DIVALPROEX SPRINKLE 125 MG CAP.SPRINK PO SCH ×3 (08:44→19:55)
[2021-02-18] MEDS: FOLIC ACID 1 MG TABLET PO SCH (08:44)
[2021-02-18] MEDS: FERROUS SULFATE 325 MG TABEC PO SCH (08:44)
[2021-02-18] MEDS: RIVASTIGMINE TARTRATE 1.5 MG CAPSULE PO SCH ×2 (08:44→17:26)
[2021-02-18] MEDS: ASCORBIC ACID 500 MG TABLET PO SCH (08:45)
[2021-02-18] MEDS: risperiDONE 1 MG TABLET PO SCH ×2 (08:45→19:56)
[2021-02-18] MEDS: MULTIVITAMINS,THERAPEUTIC TABLET PO SCH (08:45)
--- NOTE | 2021-02-18 08:47 | NUR ---
Patient spit out medication, refusing to take meds. Will make MD aware. Will continue to monitor.
--- NOTE | 2021-02-18 09:08 | NUR ---
Patient did take half the dose of Depakote sprinkles in apple sauce. Refused to take anymore medications after. Had to none administer all the medications that patient refused. I had already discarded of the package and used a manual barcode to administer Depakote sprinkle medication and wasted half of the dose in the Pyxis. Made pharmacist Liss aware. She recommended making notation.
[2021-02-18 15:14] VITALS: BP 116/53
--- NOTE | 2021-02-18 18:31 | NUR ---
Pt left sitting in the Giuliana chair. No sign of distress noted. Swallow eval still pending. Pt has poor intake and is withdrawn and isolative. Vital signs are within normal limits. Safety measures implemented. Will endorse to the oncoming nurse.
[2021-02-18 19:30] VITALS: BP 92/53
[2021-02-18] MEDS: DONEPEZIL 10 MG TABLET PO SCH (19:55)
[2021-02-18] MEDS: ATORVASTATIN 40 MG TABLET PO SCH (19:55)
[2021-02-18] MEDS ORDERED: risperiDONE 0.25 MG TABLET PO SCH (20:00)
[2021-02-18 20:03] VITALS: BP 109/56
[2021-02-19] MEDS: LEVOTHYROXINE SODIUM 25 MCG TABLET PO SCH (06:15)
--- NOTE | 2021-02-19 06:17 | NUR ---
Patient slept 8.00 hours last night. Study Lead was able to give the patient medications with little prompting. The patient is up early this am and has been telling the staff over and over " Today is my Birthday, I am 16 years old." It is noted that Dutch is her second language, but her Birthday is on [birth year]. Despite this writers attempts to reorient the patient, she insisted she was right. Continuing to monitor the patient for safety, and to encourage oral intake of food and fluids. No aggression or combativeness noted at this time.
[2021-02-19 07:30] VITALS: BP 96/59
[2021-02-19] MEDS: AMLODIPINE 10 MG TABLET PO SCH (09:00)
[2021-02-19] MEDS: METOPROLOL TARTRATE 25 MG TABLET PO SCH ×2 (09:00→17:01)
[2021-02-19] MEDS: LOSARTAN POTASSIUM 50 MG TABLET PO SCH (09:00)
[2021-02-19] MEDS: FERROUS SULFATE 325 MG TABEC PO SCH (09:18)
[2021-02-19] MEDS: FOLIC ACID 1 MG TABLET PO SCH (09:18)
[2021-02-19] MEDS: METFORMIN HCL 500 MG TABLET PO SCH (09:23)
[2021-02-19] MEDS: DIVALPROEX SPRINKLE 125 MG CAP.SPRINK PO SCH ×2 (09:23→20:01)
[2021-02-19] MEDS: ASCORBIC ACID 500 MG TABLET PO SCH (09:25)
[2021-02-19] MEDS: ASPIRIN 81 MG TAB.CHEW PO SCH (09:26)
[2021-02-19] MEDS: RIVASTIGMINE TARTRATE 1.5 MG CAPSULE PO SCH ×2 (09:31→17:01)
[2021-02-19] MEDS: risperiDONE 1 MG TABLET PO SCH ×2 (09:32→20:01)
[2021-02-19] MEDS: MULTIVITAMINS,THERAPEUTIC TABLET PO SCH (09:32)
[2021-02-19] MEDS: GLUCERNA SHAKE VANILLA 237 ML CAN PO SCH ×2 (09:32→17:02)
--- NOTE | 2021-02-19 14:40 | NUR ---
RASHAD Family Meeting: RASHAD met with patient's son, Bryan ([phone]) who is involved in the patient's care and stated he is the DPOA. RASHAD requested documents and he stated he will provide them today or tomorrow. Bryan expressed his concerns about why the patient is on a psychiatric hold. RASHAD provided Bryan education. Bryan stated he would like the patient to go to [facility]. RASHAD informed that she spoke with [facility] ([phone]) who confirmed patient is welcome to their facility once stable. RASHAD informed Bryan that patient requires to be behaviorally stable and compliant with medications in order to be able to admit to [facility]. Bryan was frustrated but he was understanding.
[2021-02-19 15:17] VITALS: BP 113/53
[2021-02-19] MEDS: DONEPEZIL 10 MG TABLET PO SCH (20:01)
[2021-02-19] MEDS: ATORVASTATIN 40 MG TABLET PO SCH (20:01)
[2021-02-19 20:08] VITALS: BP 104/52
[2021-02-20] MEDS: LEVOTHYROXINE SODIUM 25 MCG TABLET PO SCH (06:07)
--- NOTE | 2021-02-20 06:14 | NUR ---
PT SLEPT 7.30H. PT IN NO ACUTE DISTRESS. PT PLEASANTLY CONFUSED AND REDIRECTABLE. VITAL SIGNS WITHIN NORMAL LIMIT. PRESCRIBED MEDICATION GIVEN AND PT TOLERATED IT WELL. PT COOPERATIVE WITH CARE.SAFETY AND COMFORT PROVIDED. ALL NEEDS ARE MET. WILL ENDORSE TO INCOMING NURSE FOR CONTINUITY OF CARE.
[2021-02-20 07:30] VITALS: BP 108/57
[2021-02-20] MEDS: ASPIRIN 81 MG TAB.CHEW PO SCH (08:11)
[2021-02-20] MEDS: DIVALPROEX SPRINKLE 125 MG CAP.SPRINK PO SCH ×3 (08:11→16:43)
[2021-02-20] MEDS: METFORMIN HCL 500 MG TABLET PO SCH (08:11)
[2021-02-20] MEDS: RIVASTIGMINE TARTRATE 1.5 MG CAPSULE PO SCH ×2 (08:11→16:43)
[2021-02-20] MEDS: risperiDONE 1 MG TABLET PO SCH ×2 (08:12→20:43)
[2021-02-20] MEDS: MULTIVITAMINS,THERAPEUTIC TABLET PO SCH (08:12)
[2021-02-20] MEDS: LOSARTAN POTASSIUM 50 MG TABLET PO SCH (08:12)
[2021-02-20] MEDS: FOLIC ACID 1 MG TABLET PO SCH (08:12)
[2021-02-20] MEDS: FERROUS SULFATE 325 MG TABEC PO SCH (08:12)
[2021-02-20] MEDS: ASCORBIC ACID 500 MG TABLET PO SCH (08:13)
[2021-02-20] MEDS: GLUCERNA SHAKE VANILLA 237 ML CAN PO SCH ×2 (08:13→16:44)
[2021-02-20] MEDS: METOPROLOL TARTRATE 25 MG TABLET PO SCH ×2 (08:14→16:44)
[2021-02-20] MEDS: AMLODIPINE 10 MG TABLET PO SCH (08:14)
--- NOTE | 2021-02-20 12:51 | NUR ---
RASHAD DPOA Documents: Patient's son, Bryan ([phone]) sent DPOA documents regarding healthcare. A copy has been placed in the patient's chart.
[2021-02-20 15:17] VITALS: BP 122/58
--- NOTE | 2021-02-20 17:08 | NUR ---
received patient is up to maria del carmen-chair with assisted to all ADLS, took all am medication,no agitated or aggressive noted ambulating with PT in hallway.patient remains isolative no interaction with other peers.will continue close monitoring.
[2021-02-20 20:03] VITALS: BP 138/70
[2021-02-20] MEDS: DONEPEZIL 10 MG TABLET PO SCH (20:44)
[2021-02-20] MEDS: ATORVASTATIN 40 MG TABLET PO SCH (20:45)
[2021-02-21 07:30] VITALS: BP 131/74
[2021-02-21] MEDS: ASPIRIN 81 MG TAB.CHEW PO SCH (08:37)
[2021-02-21] MEDS: FERROUS SULFATE 325 MG TABEC PO SCH (08:38)
[2021-02-21] MEDS: risperiDONE 1 MG TABLET PO SCH ×2 (08:38→20:00)
[2021-02-21] MEDS: METFORMIN HCL 500 MG TABLET PO SCH (08:38)
[2021-02-21] MEDS: RIVASTIGMINE TARTRATE 1.5 MG CAPSULE PO SCH ×2 (08:38→17:17)
[2021-02-21] MEDS: ASCORBIC ACID 500 MG TABLET PO SCH (08:38)
[2021-02-21] MEDS: MULTIVITAMINS,THERAPEUTIC TABLET PO SCH (08:38)
[2021-02-21] MEDS: AMLODIPINE 10 MG TABLET PO SCH (08:40)
[2021-02-21] MEDS: DIVALPROEX SPRINKLE 125 MG CAP.SPRINK PO SCH ×3 (08:40→17:17)
[2021-02-21] MEDS: FOLIC ACID 1 MG TABLET PO SCH (08:41)
[2021-02-21] MEDS: METOPROLOL TARTRATE 25 MG TABLET PO SCH ×2 (08:41→17:18)
[2021-02-21] MEDS: LEVOTHYROXINE SODIUM 25 MCG TABLET PO SCH (08:41)
[2021-02-21] MEDS: LOSARTAN POTASSIUM 50 MG TABLET PO SCH (08:41)
[2021-02-21] MEDS: GLUCERNA SHAKE VANILLA 237 ML CAN PO SCH ×2 (09:10→17:18)
[2021-02-21 16:00] VITALS: BP 111/61
[2021-02-21 20:15] VITALS: BP 111/61
[2021-02-21] MEDS: DONEPEZIL 10 MG TABLET PO SCH (20:53)
[2021-02-21] MEDS: ZOLPIDEM 5 MG TABLET PO PRN (20:53)
[2021-02-21] MEDS: ATORVASTATIN 40 MG TABLET PO SCH (20:53)
--- NOTE | 2021-02-22 05:45 | NUR ---
[facility] and [facility] in bed where she took medication and drank water. No adverse reaction from medication no signs of agitation noted. pt slept 7 hours during the night. Pt compliant with staff. will continue to monitor for safety and fall prevention.
[2021-02-22] MEDS: LEVOTHYROXINE SODIUM 25 MCG TABLET PO SCH (07:00)
[2021-02-22 07:30] VITALS: BP 125/66
--- NOTE | 2021-02-22 09:43 | NUR ---
RASHAD PC Hearing: Patient had 5250 probable cause hearing today and it was upheld for grave disability.
[2021-02-22] MEDS: ASPIRIN 81 MG TAB.CHEW PO SCH (11:39)
[2021-02-22] MEDS: FERROUS SULFATE 325 MG TABEC PO SCH (11:39)
[2021-02-22] MEDS: RIVASTIGMINE TARTRATE 1.5 MG CAPSULE PO SCH ×2 (11:39→17:51)
[2021-02-22] MEDS: risperiDONE 1 MG TABLET PO SCH (11:40)
[2021-02-22] MEDS: ASCORBIC ACID 500 MG TABLET PO SCH (11:40)
[2021-02-22] MEDS: METFORMIN HCL 500 MG TABLET PO SCH (11:41)
[2021-02-22] MEDS: AMLODIPINE 10 MG TABLET PO SCH (11:41)
[2021-02-22] MEDS: FOLIC ACID 1 MG TABLET PO SCH (11:42)
[2021-02-22] MEDS: METOPROLOL TARTRATE 25 MG TABLET PO SCH ×2 (11:42→17:53)
[2021-02-22] MEDS: MULTIVITAMINS,THERAPEUTIC TABLET PO SCH (11:43)
[2021-02-22] MEDS: DIVALPROEX SPRINKLE 125 MG CAP.SPRINK PO SCH ×3 (11:43→17:51)
[2021-02-22] MEDS: LOSARTAN POTASSIUM 50 MG TABLET PO SCH (11:47)
[2021-02-22] MEDS: GLUCERNA SHAKE VANILLA 237 ML CAN PO SCH ×2 (11:48→17:54)
[2021-02-22 16:00] VITALS: BP 111/63
[2021-02-22 20:09] VITALS: BP 109/64
[2021-02-22] MEDS: risperiDONE 2 MG TABLET PO SCH (20:38)
[2021-02-22] MEDS: DONEPEZIL 10 MG TABLET PO SCH (20:38)
[2021-02-22] MEDS: ATORVASTATIN 40 MG TABLET PO SCH (20:38)
[2021-02-22] MEDS: ZOLPIDEM 5 MG TABLET PO PRN (20:39)
--- NOTE | 2021-02-22 23:06 | NUR ---
PT IS STILL ON HOLD PT TOOK ALL OF HER HS MEDICATION NO SIGNS OF RESPIRATORY DISTRESS NOTED. PT CALM SAT MOST DAY AT NURSE STATION ON [facility] [place]. WILL CONTINUE TO MONITOR.
[2021-02-23] MEDS: LEVOTHYROXINE SODIUM 25 MCG TABLET PO SCH (06:20)
[2021-02-23 07:30] VITALS: BP 126/68
[2021-02-23] MEDS: RIVASTIGMINE TARTRATE 1.5 MG CAPSULE PO SCH ×2 (08:46→17:23)
[2021-02-23] MEDS: DIVALPROEX SPRINKLE 125 MG CAP.SPRINK PO SCH ×3 (08:46→17:23)
[2021-02-23] MEDS: ASPIRIN 81 MG TAB.CHEW PO SCH (08:46)
[2021-02-23] MEDS: METOPROLOL TARTRATE 25 MG TABLET PO SCH ×2 (08:47→17:24)
[2021-02-23] MEDS: ASCORBIC ACID 500 MG TABLET PO SCH (08:47)
[2021-02-23] MEDS: MULTIVITAMINS,THERAPEUTIC TABLET PO SCH (08:48)
[2021-02-23] MEDS: FERROUS SULFATE 325 MG TABEC PO SCH (08:48)
[2021-02-23] MEDS: FOLIC ACID 1 MG TABLET PO SCH (08:48)
[2021-02-23] MEDS: GLUCERNA SHAKE VANILLA 237 ML CAN PO SCH ×4 (08:49→17:24)
[2021-02-23] MEDS: METFORMIN HCL 500 MG TABLET PO SCH (08:49)
[2021-02-23] MEDS: LOSARTAN POTASSIUM 50 MG TABLET PO SCH (08:50)
[2021-02-23] MEDS: AMLODIPINE 10 MG TABLET PO SCH (08:50)
[2021-02-23 16:21] VITALS: BP 119/72
[2021-02-23] MEDS: DONEPEZIL 10 MG TABLET PO SCH (20:14)
[2021-02-23] MEDS: risperiDONE 2 MG TABLET PO SCH (20:14)
[2021-02-23] MEDS: ATORVASTATIN 40 MG TABLET PO SCH (20:14)
[2021-02-23 20:17] VITALS: BP 106/59
--- NOTE | 2021-02-24 05:26 | NUR ---
PATIENT ASLEEP BUT AROUSABLE, NO COMPLAIN OF PAIN. PATIENT CALM AND COOPERATIVE WITH CARE AND MEDICATIONS. PATIENT SLEPT MOST OF THE NIGHT 8:15 CONT TO MONITOR.
[2021-02-24] MEDS: LEVOTHYROXINE SODIUM 25 MCG TABLET PO SCH (06:26)
[2021-02-24 08:03] VITALS: BP 114/66
[2021-02-24] MEDS: ASCORBIC ACID 500 MG TABLET PO SCH (08:32)
[2021-02-24] MEDS: ASPIRIN 81 MG TAB.CHEW PO SCH (08:32)
[2021-02-24] MEDS: MULTIVITAMINS,THERAPEUTIC TABLET PO SCH (08:32)
[2021-02-24] MEDS: METFORMIN HCL 500 MG TABLET PO SCH (08:32)
[2021-02-24] MEDS: DIVALPROEX SPRINKLE 125 MG CAP.SPRINK PO SCH ×3 (08:32→17:16)
[2021-02-24] MEDS: LOSARTAN POTASSIUM 50 MG TABLET PO SCH (08:33)
[2021-02-24] MEDS: RIVASTIGMINE TARTRATE 1.5 MG CAPSULE PO SCH ×2 (08:33→17:16)
[2021-02-24] MEDS: AMLODIPINE 10 MG TABLET PO SCH (08:33)
[2021-02-24] MEDS: FERROUS SULFATE 325 MG TABEC PO SCH (08:33)
[2021-02-24] MEDS: METOPROLOL TARTRATE 25 MG TABLET PO SCH ×2 (08:34→17:17)
[2021-02-24] MEDS: GLUCERNA SHAKE VANILLA 237 ML CAN PO SCH ×3 (08:55→17:17)
[2021-02-24] MEDS: FOLIC ACID 1 MG TABLET PO SCH (09:20)
--- NOTE | 2021-02-24 15:31 | NUR ---
PATIENT IS AWAKE AND COOPERATIVE WITH CARE AND MEDICATIONS AT THIS TIME CHECKED ON ROUNDS FOR SAFETY WILL CONTINUE TO PROVIDE SAFE AND THERAPEUTIC ENVIRONMENT AT ALL TIMES.
[2021-02-24 16:42] VITALS: BP 135/57
[2021-02-24 19:49] VITALS: BP 146/77
[2021-02-24] MEDS: DONEPEZIL 10 MG TABLET PO SCH (21:18)
[2021-02-24] MEDS: ZOLPIDEM 5 MG TABLET PO PRN (21:18)
[2021-02-24] MEDS: ATORVASTATIN 40 MG TABLET PO SCH (21:22)
[2021-02-24] MEDS: risperiDONE 2 MG TABLET PO SCH (21:26)
--- NOTE | 2021-02-24 23:39 | NUR ---
PT IS CALM AND COOPERATIVE COMPLIANT WITH MEDICATION DENIES ANY PAIN NO SIGNS OF ANXIETY NOTED. WILL CONTINUE TO MONITOR.
[2021-02-25] MEDS: LEVOTHYROXINE SODIUM 25 MCG TABLET PO SCH (06:07)
[2021-02-25 07:30] VITALS: BP 139/65
[2021-02-25] MEDS: RIVASTIGMINE TARTRATE 1.5 MG CAPSULE PO SCH ×2 (08:15→16:39)
[2021-02-25] MEDS: DIVALPROEX SPRINKLE 125 MG CAP.SPRINK PO SCH ×3 (08:15→16:39)
[2021-02-25] MEDS: METFORMIN HCL 500 MG TABLET PO SCH (08:15)
[2021-02-25] MEDS: FERROUS SULFATE 325 MG TABEC PO SCH (08:15)
[2021-02-25] MEDS: ASCORBIC ACID 500 MG TABLET PO SCH (08:15)
[2021-02-25] MEDS: ASPIRIN 81 MG TAB.CHEW PO SCH (08:15)
[2021-02-25] MEDS: MULTIVITAMINS,THERAPEUTIC TABLET PO SCH (08:15)
[2021-02-25] MEDS: FOLIC ACID 1 MG TABLET PO SCH (08:15)
[2021-02-25] MEDS: METOPROLOL TARTRATE 25 MG TABLET PO SCH ×2 (08:16→16:43)
[2021-02-25] MEDS: LOSARTAN POTASSIUM 50 MG TABLET PO SCH (08:16)
[2021-02-25] MEDS: AMLODIPINE 10 MG TABLET PO SCH (08:16)
[2021-02-25] MEDS: GLUCERNA SHAKE VANILLA 237 ML CAN PO SCH ×3 (08:17→17:12)
[2021-02-25] MEDS: ACETAMINOPHEN 325 MG TABLET PO PRN (13:40)
--- NOTE | 2021-02-25 13:41 | NUR ---
PATIENT COMPLAINED C/O HEADACHE AND GAS MEDICATED WITH TYLENOL AND MYLANTA ORDERED MADE COMFORTABLE AND WILL OBSERVE.
[2021-02-25 16:03] VITALS: BP 101/68
--- NOTE | 2021-02-25 18:00 | NUR ---
RESTING COMFORTABLY IN BED COMPLIANT WITH MEDICATIONS AND CARE WILL CONTINUE TO PROVIDE SAFE AND THERAPEUTIC ENVIRONMENT AT ALL TIMES.
[2021-02-25 20:00] VITALS: BP 122/66
[2021-02-25] MEDS: ATORVASTATIN 40 MG TABLET PO SCH (20:11)
[2021-02-25] MEDS: DONEPEZIL 10 MG TABLET PO SCH (20:11)
[2021-02-25] MEDS: risperiDONE 2 MG TABLET PO SCH (20:11)
[2021-02-26] MEDS: LEVOTHYROXINE SODIUM 25 MCG TABLET PO SCH (06:12)
[2021-02-26 07:30] VITALS: BP 129/63
[2021-02-26] MEDS: RIVASTIGMINE TARTRATE 1.5 MG CAPSULE PO SCH ×2 (08:13→17:00)
[2021-02-26] MEDS: ASPIRIN 81 MG TAB.CHEW PO SCH (08:13)
[2021-02-26] MEDS: ASCORBIC ACID 500 MG TABLET PO SCH (08:14)
[2021-02-26] MEDS: LOSARTAN POTASSIUM 50 MG TABLET PO SCH (08:14)
[2021-02-26] MEDS: METOPROLOL TARTRATE 25 MG TABLET PO SCH ×2 (08:14→17:00)
[2021-02-26] MEDS: DIVALPROEX SPRINKLE 125 MG CAP.SPRINK PO SCH ×3 (08:14→17:00)
[2021-02-26] MEDS: MULTIVITAMINS,THERAPEUTIC TABLET PO SCH (08:14)
[2021-02-26] MEDS: METFORMIN HCL 500 MG TABLET PO SCH (08:14)
[2021-02-26] MEDS: FOLIC ACID 1 MG TABLET PO SCH (08:14)
[2021-02-26] MEDS: FERROUS SULFATE 325 MG TABEC PO SCH (08:14)
[2021-02-26] MEDS: AMLODIPINE 10 MG TABLET PO SCH (08:15)
[2021-02-26] MEDS: GLUCERNA SHAKE VANILLA 237 ML CAN PO SCH ×3 (08:16→17:07)
--- NOTE | 2021-02-26 18:30 | NUR ---
received Pt compliant with medications. she is confused and disoriented unable to formulate plan for self care. sitting in [facility]ia [facility]men chair by nursing station for close monitoring.
[2021-02-26 20:00] VITALS: BP 114/71
[2021-02-26] MEDS: DONEPEZIL 10 MG TABLET PO SCH (21:02)
[2021-02-26] MEDS: ATORVASTATIN 40 MG TABLET PO SCH (21:03)
[2021-02-26] MEDS: risperiDONE 2 MG TABLET PO SCH (21:06)
[2021-02-26] MEDS: ZOLPIDEM 5 MG TABLET PO PRN (22:33)
[2021-02-27] MEDS: LEVOTHYROXINE SODIUM 25 MCG TABLET PO SCH (06:15)
[2021-02-27 07:30] VITALS: BP 126/71
[2021-02-27] MEDS: METFORMIN HCL 500 MG TABLET PO SCH (08:18)
[2021-02-27] MEDS: DIVALPROEX SPRINKLE 125 MG CAP.SPRINK PO SCH ×3 (08:19→16:22)
[2021-02-27] MEDS: METOPROLOL TARTRATE 25 MG TABLET PO SCH ×2 (08:19→16:22)
[2021-02-27] MEDS: ASCORBIC ACID 500 MG TABLET PO SCH (08:21)
[2021-02-27] MEDS: ASPIRIN 81 MG TAB.CHEW PO SCH (08:21)
[2021-02-27] MEDS: FERROUS SULFATE 325 MG TABEC PO SCH (08:21)
[2021-02-27] MEDS: FOLIC ACID 1 MG TABLET PO SCH (08:21)
[2021-02-27] MEDS: AMLODIPINE 10 MG TABLET PO SCH (08:22)
[2021-02-27] MEDS: LOSARTAN POTASSIUM 50 MG TABLET PO SCH (08:22)
[2021-02-27] MEDS: MULTIVITAMINS,THERAPEUTIC TABLET PO SCH (08:23)
[2021-02-27] MEDS: GLUCERNA SHAKE VANILLA 237 ML CAN PO SCH ×3 (08:23→18:00)
[2021-02-27] MEDS: RIVASTIGMINE TARTRATE 1.5 MG CAPSULE PO SCH ×2 (08:24→16:22)
[2021-02-27 16:21] VITALS: BP 116/61
[2021-02-27 20:03] VITALS: BP 118/66
[2021-02-27] MEDS: DONEPEZIL 10 MG TABLET PO SCH (20:18)
[2021-02-27] MEDS: ATORVASTATIN 40 MG TABLET PO SCH (20:18)
[2021-02-27] MEDS: risperiDONE 2 MG TABLET PO SCH (20:18)
[2021-02-28] MEDS: LEVOTHYROXINE SODIUM 25 MCG TABLET PO SCH (06:04)
[2021-02-28 07:17] LABS: HEMATOCRIT 32.7 % (31.2-41.9); MEAN CORPUSCULAR HEMOGLOBIN 33.6 uug (24.7-32.8); MEAN CORPUSCULAR VOLUME 97.6 fL (75.5-95.3); PLATELET COUNT (AUTO) 133 K/uL (179-408)
[2021-02-28 07:27] LABS: BILIRUBIN,TOTAL 0.3 mg/dL (0.2-1.0); CREATININE 0.9 mg/dL (0.6-1.3); MAGNESIUM 2.2 mg/dL (1.8-2.4); PHOSPHOROUS 3.7 mg/dL (2.5-4.9); POTASSIUM 3.7 mmol/L (3.5-5.1)
[2021-02-28 07:30] VITALS: BP 120/59
--- NOTE | 2021-02-28 08:17 | NUR ---
Discharge Note: Patient will be discharged to [facility] facility [facility] ([phone]). Patient pick out hand is arranged by the facilitys transportation for today at 1PM. [employer] spoke with Kim [phone]), director of acquisition marketing, who stated patient is able to return to facility today. Patient is alert and oriented x2 and is not able to plan for self-care at this time but is willing to accept care provided for her at the facility. Patient denies any suicidal or homicidal ideation. Patient is aware and agreeable with discharge plans. Patient will follow up with Dr. Esteves (Business Analyst Sales Operations) and Dr. Fine (Psychiatrist) at [facility]. Patient presents with euthymic mood and congruent affect. Patients son, Bryan Zaidi ([phone]) is aware and agreeable with discharge plan.
[2021-02-28] MEDS: METFORMIN HCL 500 MG TABLET PO SCH (08:49)
[2021-02-28] MEDS: FERROUS SULFATE 325 MG TABEC PO SCH (08:50)
[2021-02-28] MEDS: FOLIC ACID 1 MG TABLET PO SCH (08:50)
[2021-02-28] MEDS: ASCORBIC ACID 500 MG TABLET PO SCH (08:50)
[2021-02-28] MEDS: DIVALPROEX SPRINKLE 125 MG CAP.SPRINK PO SCH ×2 (08:50→12:27)
[2021-02-28] MEDS: ASPIRIN 81 MG TAB.CHEW PO SCH (08:50)
[2021-02-28] MEDS: RIVASTIGMINE TARTRATE 1.5 MG CAPSULE PO SCH (08:50)
[2021-02-28] MEDS: LOSARTAN POTASSIUM 50 MG TABLET PO SCH (08:51)
[2021-02-28] MEDS: AMLODIPINE 10 MG TABLET PO SCH (08:51)
[2021-02-28 08:52] VITALS: BP 120/59
[2021-02-28] MEDS: METOPROLOL TARTRATE 25 MG TABLET PO SCH (08:52)
[2021-02-28] MEDS: MULTIVITAMINS,THERAPEUTIC TABLET PO SCH (08:52)
[2021-02-28] MEDS ORDERED: ENSURE ENLIVE (VAN) 240 ML LIQUID PO SCH (09:00)
[2021-02-28] MEDS: GLUCERNA SHAKE VANILLA 237 ML CAN PO SCH (12:00)
--- NOTE | 2021-02-28 13:25 | NUR ---
Patient will be discharged to [facility] facility [facility] at 1pm , pt will order picker/assembler by the facility 's transportation.patient is alert and oriented x2-3 ,vital sign stable,denies any pain or discomfort.up and ambulating with PT . report given to Violet JASMINE at [facility].all personal belonging given to patient.
== END 2021-02-28 14:00 | DRG 885 ==
LOC: ER 13:10 → GPS 16:48
PROVIDERS: ADMIT Psychiatry & Neurology Psychiatry; ATTEND Internal Medicine
DX: F29 Unspecified psychosis not due to a substance or known physiological condition (principal); E43 Unspecified severe protein-calorie malnutrition; F03.91 Unspecified dementia, unspecified severity, with behavioral disturbance; Z68.1 Body mass index [BMI] 19.9 or less, adult; E11.9 Type 2 diabetes mellitus without complications; D63.8 Anemia in other chronic diseases classified elsewhere; E03.9 Hypothyroidism, unspecified; E78.5 Hyperlipidemia, unspecified; F03.90 Unspecified dementia, unspecified severity, without behavioral disturbance, psychotic disturbance, mood disturbance, and anxiety; Z79.84 Long term (current) use of oral hypoglycemic drugs; Z86.16 Personal history of COVID-19; Z86.73 Personal history of transient ischemic attack (TIA), and cerebral infarction without residual deficits; R53.1 Weakness; F31.9 Bipolar disorder, unspecified; E88.09 Other disorders of plasma-protein metabolism, not elsewhere classified; Z20.822 Contact with and (suspected) exposure to COVID-19; I10 Essential (primary) hypertension
CPT/HCPCS: 36415; 70030-TC; 70450; 71045; 80164; 83735; 84100; 84443; 85025; 85730; 87086; 93005; A4663; G0480